=== PATIENT | male | born 2000 | race Caucasian/White ===

== ENCOUNTER 2020-10-12 | Emergency (ER) | payer SELFPAY | END 2020-10-12 01:40 | disposition home or self-care (01) | LOC: ERS | DX: L60.0 Ingrowing nail (principal) | CPT/HCPCS: 99283 ==

== ENCOUNTER 2022-09-17 23:01 | Emergency (ER) | payer SELFPAY ==
[2022-09-18] MEDS ORDERED: Bacitracin 1 PK ONE (02:31)
== END 2022-09-18 03:14 | disposition home or self-care (01) ==
LOC: ERS 23:01
DX: B35.1 Tinea unguium (principal); L60.0 Ingrowing nail
CPT/HCPCS: 11765